=== PATIENT | male | born 1975 | race Caucasian/White ===

== ENCOUNTER 2020-10-18 08:52 | Emergency (ER) | payer OTHER, SELFPAY ==
[2020-10-18 08:58] VITALS: BP 141/93; PULSE 75; RESP 18; TEMP 36.6; O2SAT 97
[2020-10-18] MEDS: KETOROLAC 30 MG/ML VIAL (*BKC) IM (09:35)
--- NOTE | 2020-10-18 09:43 | ED.BACK ---
HPI - Back Pain/Injury General Chief Complaint: Back Pain/Injury Stated Complaint: back pain Time Seen by Provider: 10/18/20 09:07 Source: patient Mode of arrival: ambulatory Limitations: no limitations History of Present Illness HPI Narrative: Patient presents with chief complaint of pain to bilateral sides of low back. Patient states on Saturday he was very active however he denies any falls or direct impact. Patient and his back became painful on Saturday afternoon. He states he was taking ibuprofen inside chiropractor yesterday but denies remittance of his discomfort. He denies radicular symptoms. He denies loss of range of motion but states motion is very painful and spasm-like. Patient states he has had this issue in the past and had improvement with muscle relaxers. Patient denies fever, chills, nausea, vomiting, diarrhea, loss of bowel or bladder function or saddle paresthesias. Related Data Allergies Allergy/AdvReac Type Severity Reaction Status Date / Time rosuvastatin Allergy Mild Unknown Verified 10/18/20 09:03 clarithromycin Allergy Unknown Unknown Verified 10/18/20 09:03 codeine Allergy Unknown Unknown Verified 09/19/20 08:21 ezetimibe Allergy Unknown rash Verified 10/18/20 09:03 lisinopril Allergy Unknown Unknown Verified 10/18/20 09:03 No Known Allergies Allergy Unknown Verified 09/19/20 08:21 Review of Systems Review of Systems: Narrative: CONSTITUTIONAL: Denies fever, chills, or sweats. EYES: Denies visual changes, redness, or discharge. ENT: Denies rhinorrhea, congestion, sore throat, or otalgia. CARDIOVASCULAR: Denies chest pain, palpitations, or edema. RESPIRATORY: Denies cough or dyspnea. GASTROINTESTINAL: Denies abdominal pain, nausea, vomiting, or diarrhea. GENITOURINARY: Denies dysuria or hematuria. SKIN: Denies rash or itching. MUSCULOSKELETAL: Reports back pain denies joint pain, or myalgia. NEUROLOGIC: Denies headache, numbness, dizziness, or weakness. PSYCHIATRIC: Denies anxiety or depression. [facility] Family History Family History Father Cerebrovascular accident Mother Family history of lymphoma Grandparent Diabetes mellitus Other Hypertension Social History Social History (Reviewed 09/19/20 @ 08:22 by Chloe Joshua Smoking status: Never smoker Second hand tobacco smoke exposure: No Smoking end date: 07/22/15 Alcohol intake: current Exam Narrative: Exam Narrative: GENERAL: Well-appearing, well-nourished, and in no acute distress. HEAD: Normocephalic, atraumatic. EYES: PERRLA and EOMI. ENT: Nares clear, no rhinorrhea or epistaxis. Mucous membranes moist. Oropharynx without tonsillar hypertrophy exudate or other lesions. Bilateral TMs pearly cobb nonbulging NECK: Supple. No adenopathy or masses. CHEST: Clear to auscultation. No respiratory distress. No wheezes rales or rhonchi HEART: Regular rate and rhythm. No murmur heard. Normal peripheral pulses. BACK: No vertebral point tenderness. No bony step-offs noted. Patient able to ambulate and weight-bear. Lumbar paraspinal muscle spasm palpated right worse than left. EXTREMITIES: Normal range of motion. No edema. SKIN: Warm, dry, no rash. NEURO: No focal deficits. Alert and oriented x3. PSYCH: Normal mood and affect. Course Vital Signs Vital signs: Vital Signs Temperature 97.9 F 10/18/20 08:58 Pulse Rate 75 10/18/20 08:58 Respiratory Rate 18 10/18/20 08:58 Blood Pressure 141/93 H 10/18/20 08:58 Pulse Oximetry 97 10/18/20 08:58 Temperature 97.9 F 10/18/20 08:58 Pulse Rate 72 10/18/20 10:06 Respiratory Rate 18 10/18/20 10:06 Blood Pressure 133/75 10/18/20 10:06 Pulse Oximetry 100 10/18/20 10:06 MDM - Back Pain/Injury MDM Narrative Medical decision making narrative: Patient does not show any signs of direct injury or accident. Patient does not have any vertebral point tenderness. Offered x-ray which she declines. I agree
--- NOTE | 2020-10-18 09:58 | PC.NURSE ---
Pt given d/c instructions, pt and refusing to leave because he has not had relief of pain. Ed petersen informed of pt statements, awaiting new order.
[2020-10-18] MEDS: methylPREDNISolone SOD SUCC 125 MG VIAL IM (10:03)
[2020-10-18 10:06] VITALS: BP 133/75; PULSE 72; RESP 18; O2SAT 100
== END 2020-10-18 10:06 | disposition home or self-care (01) ==
PROVIDERS: Emergency Provider Emergency Medicine; PCP Family Medicine
DX: M62.830 Muscle spasm of back (principal)
CPT/HCPCS: 96372; 99284; J1885; J2930

== ENCOUNTER → 2021-02-09 10:08 | Outpatient (CLI) | payer OTHER, SELFPAY ==
--- NOTE | ~2021-02-09 | XR_ITS ---
XR foot RT min 3V DATE: 02/09/2021 10:24 INDICATION: Great toe pain TECHNIQUE: 4 views COMPARISON: None FINDINGS: There is mild osteoarthritis at the first metatarsophalangeal joint. Minimal plantar calcaneal enthesopathy. No fracture, dislocation, periosteal reaction or bone destruction. IMPRESSION: Mild osteoarthritis at first metatarsophalangeal joint Minimal plantar calcaneal enthesopathy Reviewed, dictated and finalized at location A.
== END ==
PROVIDERS: Visit Provider Nurse Practitioner Family
DX: M19.071 Primary osteoarthritis, right ankle and foot (principal)
CPT/HCPCS: 73630

== ENCOUNTER → 2021-03-07 10:07 | Outpatient (CLI) | payer OTHER, SELFPAY ==
--- NOTE | ~2021-03-07 | US_ITS ---
EXAMINATION: US soft tissue pelvic DATE: 03/07/2021 10:25 INDICATION: Right lower quadrant/inguinal mass TECHNIQUE: Multiple grayscale and Doppler ultrasound images of the right lower quadrant/right inguina l region of concern were obtained. COMPARISON: None FINDINGS: There is a 5.5 x 3.2 x 2.1 cm mildly lobulated generally ovoid subcutaneous mass at the region of con cern which is slightly hyperechoic and with finer echotexture to the surrounding fat. No evident mei iation through the underlying abdominal wall. IMPRESSION: 1. Nonspecific 5.5 x 3.2 x 2.1 cm soft tissue mass centered in the subcutaneous fat at the region of concern statistically most likely to represent a lipoma. Consider CT or MRI of the pelvis for more d efinitive determination. Reviewed, dictated and finalized at location A. IMPRESSION: 1. Nonspecific 5.5 x 3.2 x 2.1 cm soft tissue mass centered in the subcutaneous fat at the region of concern statistically most likely to represent a lipoma. Consider CT or MRI of the pelvis for more definitive determination.
== END ==
PROVIDERS: PCP Family Medicine; Visit Provider Nurse Practitioner Family
DX: M79.89 Other specified soft tissue disorders (principal)
CPT/HCPCS: 76857

== ENCOUNTER 2021-05-04 08:26 | Outpatient (CLI) | payer OTHER, SELFPAY ==
--- NOTE | ~2021-05-04 | CT_ITS ---
EXAMINATION: CT pelvis w con DATE: 05/04/2021 09:17 INDICATION: Right groin mass suspicious for either lipoma or inguinal hernia. TECHNIQUE: High resolution computed tomography (CT) of the pelvis was performed with 100 mL Omnipaque -350 intravenous contrast. Additional sagittal and coronal reconstructions were performed. Automated exposure control and iterative reconstruction technique were employed. The dose-length product was 64 6.14 mGy-cm. COMPARISON: Ultrasound dated and CT dated 08/03/2014 FINDINGS: Visualized lower poles of the bilateral kidneys are normal. The visualized portion of the bowels incl uding the appendix are normal. Tiny fat-containing umbilical hernia. Bladder and prostate are unremar kable. No free fluid in the pelvis. No pathologically enlarged pelvic or inguinal lymphadenopathy. Sm all fat-containing right inguinal hernia measuring up to 1-1.5 cm in maximal diameter. There is a sub tle subcutaneous lipoma immediately underlying the marker indicating the mass of concern which measur es 6 x 2.5 x 3.5 cm which corresponds relatively close to the mass identified on the prior ultrasound . Moderate lower lumbar spondylosis. Mild bilateral hip osteoarthritis. IMPRESSION: 1. Subtle 6.2 x 2.5 x 3.5 cm subcutaneous lipoma underlying the marker and corresponding in size and location to the mass identified on prior ultrasound. 2. Coincidental very small fat-containing right inguinal hernia. Reviewed, dictated and finalized at location A. IMPRESSION: 1. Subtle 6.2 x 2.5 x 3.5 cm subcutaneous lipoma underlying the marker and keenan esponding in size and location to the mass identified on prior ultrasound. 2. Coincidental very small fat-containing right inguinal hernia.
[2021-05-04 09:02] LABS: Estimated Glomerular Filt Rate > 60
== END 2021-05-04 08:27 | disposition home or self-care (01) ==
LOC: ANHIMG 08:28
PROVIDERS: PCP Family Medicine; Visit Provider Surgery
DX: M79.89 Other specified soft tissue disorders (principal); D17.1 Benign lipomatous neoplasm of skin and subcutaneous tissue of trunk
CPT/HCPCS: 72193; Q9967

== ENCOUNTER 2021-06-14 01:21 | Day surgery (SDC) | payer OTHER, SELFPAY ==
[2021-06-07 13:03] VITALS: BMI 31.6
--- NOTE | 2021-06-07 13:04 | PC.NURSE ---
Report to the Outpatient Waiting Room, entrance under the green pavilion located off [facility], at time 1000 on date _06/14/21 . OR Time: 1200 - You and your visitor will be asked a series of questions to screen for COVID 19 for your protection. - A mask is required within the hospital. - Only one visitor is allowed at this time. Patient visitors will be guided where to wait when not with patient. Preoperative COVID Testing Requirements: No COVID Test needed if: (proof is required; if not received patient will have Rapid Test prior to entry) - Patient has received COVID Vaccine at least 14 days prior to procedure date or - Patient has positive COVID test result within last 90 days of surgery date. COVID Test needed if above criteria is not met If not COVID vaccinated a COVID test must be conducted within 72 hours of surgery and patient is asked to isolate self from time of testing until procedure. You will go to the [email or web address] for your COVID testing. The [email or web address] site is located at the corner of [address] [facility]. You will only be called if COVID results are positive and your surgeon may reschedule your elective surgery date. Patients may have clear liquids (water, carbonated beverages, clear teas, apple juice) until 3 hours prior to surgery with a maximum of 20 ounces. - No food from midnight until time of surgery - Infants may have breast milk until 4 hours before surgery, formula 6 hours prior to surgery. - Children will be allowed to drink immediately following surgery. If applicable, please bring a bottle or sippy cup to assist with drinking. Juice, water, soda, and popsicles are readily available. For infants on formula, please bring formula the day of surgery. Pacifiers are allowed. Take the following medications with a SIP of water the morning of surgery: alprazolam,buproprion,levothyroxine_ Medications to discontinue per physician _vitamins_ Date to take last dose_pt stopped x 2 weeks Please no make-up, nail kyrgyz, hairspray, perfume, deodorant, or body powder the day of surgery. No jewelry (including any body piercings) or valuables the day of surgery, leave them at home. Please take a shower or bath the night before, or the morning of, surgery with an antibacterial soap. Wear comfortable, loose fitting clothing. Children are encouraged to wear pajamas. hibiclens shower am of surgery. - Jewelry must be removed prior to entering the operating room. Rings and piercings that are not removed may be cut off. - The hospital will not accept responsibility for valuables. - Please leave all valuables, including medications, at home the day of surgery. If you are going home after surgery, a licensed auto carrier driver must drive you home. - NO public transportation without another adult. - We recommend that an adult stay with you for 24 hours following discharge. - We also recommend that you do not drive, make important decision, drink alcoholic beverages, or take any drugs that were not prescribed by your health care provider for at least 24 hours after your discharge time. For Pediatric surgeries, we recommend two adults accompany the child home (only one inside the building at this time). Follow any additional instructions given to you from your surgeon. Telephone instructions given to kristi mercado_and asked if any additional questions and then verbalized understanding. Patient advised to call surgeon office or pre surgery nurse liaison [phone] if any additional questions.
[2021-06-14 10:10] VITALS: BP 136/87; PULSE 65; RESP 16; TEMP 36.4; O2SAT 98
[2021-06-14] MEDS: ACETAMINOPHEN 500 MG TABLET 1000 MG PO (10:27)
[2021-06-14] MEDS: LACTATED RINGERS 1,000 ML 30 ML IV CONT ×2 (10:30→14:08)
[2021-06-14] MEDS: KETOROLAC 15 MG/ML VIAL (*BKC) IV PUSH (10:32)
--- NOTE | 2021-06-14 11:24 | WPDANESEPPF ---
Anes - Initial Pre Proc Eval Procedure: Operation Date: 06/14/21 12:00 Proposed Procedures p Open Repair Right Inguinal Hernia with Mesh, Excision Lipoma Right Groin - Maynor García MD Date/Time: 06/14/21 11:24 Surgeon: Maynor García MD Pre Op Diagnosis: Rt Ing Hernia, Right Groin Lipoma (6 by 3 by 2cm) Patient Data Age: 46 Gender: M Height: 1.78 m Weight: 100.2 kg Last Vital Signs Temp 36.4 C L 06/14/21 10:10 Pulse 65 06/14/21 10:10 Resp 16 06/14/21 10:10 BP 136/87 06/14/21 10:10 Pulse Ox 98 06/14/21 10:10 Allergies Allergy/AdvReac Type Severity Reaction Status Date / Time ezetimibe Allergy Intermediate rash Verified 06/14/21 10:21 rosuvastatin Allergy Mild Swelling/it Verified 06/14/21 10:21 maricruz lisinopril AdvReac Mild Cough Verified 06/14/21 10:21 Home Medications Medication Instructions Recorded Confirmed Type erenumab-aooe 70 mg/mL 70 mg SUBCUT MONTHLY #1 ea 10/31/20 06/14/21 Rx subcutaneous auto-injector hydrochlorothiazide 12.5 mg tablet 12.5 mg PO DAILY #30 tablet 12/09/20 06/14/21 Rx losartan 50 mg tablet 50 mg PO DAILY #30 tablet 12/09/20 06/14/21 Rx bupropion HCl 150 mg tablet,12 hr 150 mg PO BID #60 tablet 03/14/21 06/14/21 Rx sustained-release hydroxyzine HCl 10 mg tablet 10 mg PO TID PRN #30 tablet 04/11/21 06/14/21 Rx levothyroxine 125 mcg tablet 125 mcg PO DAILY #30 tablet 04/12/21 06/14/21 Rx aspirin 81 mg tablet,delayed 81 mg PO DAILY 04/24/21 06/14/21 History release multivitamin 1 tablet PO DAILY 04/24/21 06/07/21 History vitamin E 200 unit capsule 200 unit PO DAILY 04/24/21 06/07/21 History alprazolam 0.25 mg PO PRN 06/07/21 06/14/21 History Patient hx anesthesia problems: none Family hx anesthesia problems: none Results Review: All pre-operative results and documents have been reviewed as part of the pre-operative evaluation. FOR[facility]LY [facility], [facility] Past Medical History Medical History Anxiety BMI 32.0-32.9,adult Cholecystectomy planned Deviated septum Essential (primary) hypertension Hypothyroidism Migraine VERENICE (obstructive sleep apnea) Surgical History Surgical History History of laparoscopic cholecystectomy History of nasal septoplasty 2019 Family History Family History Father Cerebrovascular accident Acute myocardial infarction Mother Family history of lymphoma Grandparent Diabetes mellitus Sibling No problems noted. Other Hypertension Social History Social History Smoking status: Former smoker Tobacco type: cigarettes Second hand tobacco smoke exposure: No Smoking end date: 07/22/15 Additional smoking assessment comments: 1/2 ppd x 10 years cigarettes Alcohol intake: current Drinks per week: 10 Substance use: never Substance use type: does not use Living arrangements: with family Additional occupation/education comments: [employer] Gender identity (if verbalized by the patient): Male Spiritual care concerns: No Anes - Eval Final PreProcedure Day of Procedure 06/14/21 11:24 Patient weight: obese Heart: regular rate and rhythm Lungs: clear to auscultation Airway: Mallampati scale class II Neurological: alert and oriented Last oral intake: >/= 8 hours ASA classification: III Emergent: no Anesthetic plan: proceed Anesthesia type and monitoring: general LMA and standard monitoring Results Review: All pre-operative results and documents have been reviewed as part of the pre-operative evaluation. Informed Consent: The patient's anesthetic plan and its attendant risks and benefits were discussed with the patient/family/POA. Questions were solicited and answers provided to the satisfaction of the patient/family/POA.
--- NOTE | 2021-06-14 11:44 | WPDHPUPDATE1 ---
History and Physical Update Update Date/Time: 06/14/21 11:44 History and Physical has been reviewed, including an updated exam of the patient. There are NO changes in the patient's condition. Risks, benefits, and alternatives have been discussed and questions answered. Patient agrees to proceed with procedure.
[2021-06-14] MEDS: ceFAZolin 2 GM/D5W 50 ML 2 GM/50 ML BAG IVPB (12:04)
[2021-06-14 14:08] VITALS: BP 112/65; PULSE 64; RESP 18; O2SAT 96
--- NOTE | 2021-06-14 14:22 | W.PM.PROC2 ---
Procedure Note - Detailed Date of Procedure 06/14/21 Pre-op Diagnosis 1. Right Inguinal Hernia 2. Right Groin Lipoma (6 by 3 by 2cm) Post-op Diagnosis other (1.Direct right inguinal hernia 2.Right groin lipoma X 2) Procedure Performed 1. Repair of direct right inguinal hernia with mesh 2. Excision of 6.5 by 7.5 x 3 cm lipoma with an adjacent 3 x 1.5 cm area of suspected lipoma in right groin subcutaneous tissues (2 separate adjacent apparent lipomatous masses). Surgeon Maynor García MD [employer] ANA ROSA Ryan OR malt specifications control assistant Anesthesia general (GIVS) and local Indications See specifics in pre-op H & P. Pt. has a palpable enlarginging subcutaneous mass of the right groin. By PE there was a subtle weakness in the area of the usual site for bulging of a RIH. Therefore, after a Pelvic CT confirmed an apparent fascial defect in the right groin we (the pt and I) decided on proceeding with an open excision of the fairly large ipoma in the right groin and then an exploration and repair of an right inguinal hernia if it is confirmed on intra-operative exam. Findings 1. A soft spongy fatty tumor in the subcutaneous tissues right groin directly under the site where one would usually make an incision for an inguinal hernia repair. After removed it measured 7.5 x 6.5 x 3.7 cm. There was also a small separate area of possibly adjacent lipoma which was removed that was 3 x 1 cm in size. 2. Small direct inguinal hernia on the right. Description of Procedure The patient was placed in the supine position on the operating room table. After induction of adequate GIVS anesthesia by [facility] Anesthesia staff, we carefully prepped the entire abdomen and scrotum with chlorhexidine. One sterile towel was placed underneath the scrotum. Four towels were placed around the right lower quadrant. Following this, a time-out was performed with the surgical team and the patient's surgical procedure and site was confirmed. We then carefully outlined a curvilinear incision in the right groin area and a curvilinear incision was made after introducing a mixture of local anesthetic, using 0.5% Marcaine plain and 1% Xylocaine with epinephrine as both an ilioinguinal nerve block and at the incision site with a 25 gauge needle. Following this, I carefully made the incision, and carried it down through the subcutaneous tissue. Almost immediately I ran into the known fairly good size lipoma. In fact I fashioned my incision directly over this which was also starting over the lateral right side of the pubic bone. We then carefully dissected the larger of the 2 lipomas out of the subcutaneous tissues. It seemed to be between the subcutaneous fat and Marbella's fascia. Subsequently just cephalad to it a separate 3 x 1.5 cm area of fat consistent with an encapsulated lipoma was also excised with Bovie cautery. There was one fairly large venous tributary going to the lateral end of the deep side of this larger lipoma which was divided between hemostats and tied with 3-0 Vicryl sutures. Then, Marbella's fascia was incised and then we identified the external oblique aponeurosis and the external ring. Following this, the same mixture of local anesthetic was infiltrated underneath the external oblique aponeurosis and this was split in the direction of it's fibers with a #15 blade initially and then using metzenbaum scissors. I then opened the external oblique through the external ring and incised this somewhat posteriorly and superiorly exposing the ilioinguinal nerve. In fact as I exposed it is it appeared that has I open the external oblique fascia with a 15 blade the ilioinguinal branch running on the cord structures had been transected. Therefore, I decided to sacrifice it and it was dissected about 1 cm back and cut. Hopefully this way the patient may have some numbness along the inside of his thigh but no nerve entrapment syndrome. I then surrounded these st
[2021-06-14 14:30] VITALS: BP 119/69; PULSE 58; RESP 16
[2021-06-14 15:00] VITALS: BP 120/85; PULSE 57; RESP 16
== END 2021-06-14 15:30 | disposition home or self-care (01) ==
PROVIDERS: PCP Family Medicine; Visit Provider Surgery
PROC: (CPT 49505; principal; 2021-06-14 12:00)
DX: K40.90 Unilateral inguinal hernia, without obstruction or gangrene, not specified as recurrent (principal); D17.1 Benign lipomatous neoplasm of skin and subcutaneous tissue of trunk; F17.210 Nicotine dependence, cigarettes, uncomplicated; Z79.82 Long term (current) use of aspirin; I10 Essential (primary) hypertension; Z68.32 Body mass index [BMI] 32.0-32.9, adult; E03.9 Hypothyroidism, unspecified; F41.9 Anxiety disorder, unspecified; G47.33 Obstructive sleep apnea (adult) (pediatric); E66.9 Obesity, unspecified; Z68.31 Body mass index [BMI] 31.0-31.9, adult
CPT/HCPCS: 49505; 88304; A9270; C1781; J0690; J1885; J2250; J2704; J3010; J7120

== ENCOUNTER → 2022-02-28 15:15 | Outpatient (CLI) | payer OTHER, SELFPAY ==
--- NOTE | ~2022-02-28 | CT_ITS ---
EXAMINATION: CT abdomen pelvis wo con DATE: 02/28/2022 16:01 INDICATION: Hematuria. Right lower quadrant pain. History of renal stones. TECHNIQUE: Computed tomography (CT) of the abdomen and pelvis was performed without intravenous contr ast. The dose-length product was 554.38 mGy-cm. Automated exposure control and iterative reconstructi on technique were employed. COMPARISON: CT dated 05/04/2021 FINDINGS: Lung bases are unremarkable. Heart size normal. No significant pleural or pericardial effus ion. There is diffuse bladder wall thickening, suspicious for cystitis. The liver, spleen, pancreas, adrenal glands and kidneys are unremarkable. Ureters are normal in course and caliber. No stones or h ydronephrosis. There are cholecystectomy clips. Nonobstructive bowel gas pattern. There is mild lumba r spondylosis. IMPRESSION: 1. Diffuse bladder wall thickening, suspicious for cystitis. Correlate with urinalysis. Reviewed, dictated and finalized at location A. IMPRESSION: 1. Diffuse bladder wall thickening, suspicious for cystitis. Correlate with uri nalysis.
== END ==
PROVIDERS: PCP Family Medicine; Visit Provider Nurse Practitioner Family
DX: N20.0 Calculus of kidney (principal); R31.9 Hematuria, unspecified; M47.816 Spondylosis without myelopathy or radiculopathy, lumbar region
CPT/HCPCS: 74176

== ENCOUNTER 2022-07-13 00:35 | Day surgery (SDC) | payer OTHER, SELFPAY ==
[2022-07-03 12:04] VITALS: BMI 30.9
[2022-07-13 08:39] VITALS: BP 139/87; PULSE 76; RESP 18; TEMP 36.1; O2SAT 99; BMI 30.2
[2022-07-13] MEDS: LACTATED RINGERS 1,000 ML 150 ML IV CONT (08:48)
--- NOTE | 2022-07-13 09:06 | WPDANESEPPF ---
Anes - Initial Pre Proc Eval Procedure: Operation Date: 07/13/22 10:15 Proposed Procedures p Screening Colonoscopy - Thai Freeman MD Date/Time: 07/13/22 09:06 Surgeon: Thai Freeman MD Pre Op Diagnosis: neoplasm screening Patient Data Age: 47 Gender: M Height: 1.78 m Weight: 95.5 kg Last Vital Signs Temp 36.1 C L 07/13/22 08:39 Pulse 76 07/13/22 08:39 Resp 18 07/13/22 08:39 BP 139/87 07/13/22 08:39 Pulse Ox 99 07/13/22 08:39 O2 Del Method Room Air 07/13/22 08:39 Allergies Allergy/AdvReac Type Severity Reaction Status Date / Time ezetimibe Allergy Intermediate rash Verified 07/13/22 08:38 rosuvastatin Allergy Mild Swelling/it Verified 07/13/22 08:38 maricruz lisinopril AdvReac Mild Cough Verified 07/13/22 08:38 Home Medications Medication Instructions Recorded Confirmed Type aspirin 81 mg tablet,delayed 81 mg PO DAILY 04/24/21 07/13/22 History release (Adult Low Dose Aspirin) multivitamin 1 tablet PO DAILY 04/24/21 07/13/22 History vitamin E 200 unit capsule 200 unit PO DAILY 04/24/21 07/13/22 History hydroxyzine HCl 10 mg tablet 10 mg PO TID PRN anxiety #30 tabs 02/16/22 07/13/22 Rx levothyroxine 125 mcg tablet 125 mcg PO DAILY #30 tabs 02/16/22 07/13/22 Rx (Synthroid) erenumab-aooe 70 mg/mL 70 mg subcut MONTHLY #1 ea 04/20/22 07/13/22 Rx subcutaneous auto-injector (Aimovig Autoinjector) losartan 100 See Rx Instructions .Route 05/27/22 07/13/22 Rx mg-hydrochlorothiazide 25 mg tablet .COMPLEX #90 tabs duloxetine 60 mg capsule,delayed 60 mg PO DAILY #30 caps 06/01/22 07/13/22 Rx release alprazolam 0.25 mg tablet 0.25 mg PO TID PRN anxiety #10 tabs 06/20/22 07/13/22 Rx Patient hx anesthesia problems: none Family hx anesthesia problems: none Results Review: All pre-operative results and documents have been reviewed as part of the pre-operative evaluation. [facility] Past Medical History Medical History Anxiety BMI 31.0-31.9,adult BMI 32.0-32.9,adult BMI 33.0-33.9,adult Cholecystectomy planned Deviated septum Essential (primary) hypertension Hypothyroidism Migraine VERENICE (obstructive sleep apnea) Surgical History Surgical History H/O inguinal hernia repair RIGHT INGUINAL HERNIA REPAIR WITH MESH 06/14/21 History of laparoscopic cholecystectomy History of nasal septoplasty 2019 S/P excision of lipoma [id number] CM RIGHT GROIN LIPOMA EXCISION 06/14/21 Family History Family History Father Cerebrovascular accident Acute myocardial infarction Mother Family history of lymphoma Lymphoma Grandparent Diabetes mellitus Sibling No problems noted. Other Hypertension Social History Social History Years smoked: 15 Smoking status: Former smoker Tobacco type: cigarettes Second hand tobacco smoke exposure: No Smoking end date: 07/22/15 Additional smoking assessment comments: 1/2 ppd x 10 years cigarettes Alcohol intake: current Drinks per week: 21 Substance use: never Substance use type: does not use Living arrangements: with family Additional occupation/education comments: [employer] Gender identity (if verbalized by the patient): Male Sexual Orientation (if Verbalized by the Patient): Straight or Heterosexual Spiritual care concerns: No Agree to blood products: Yes Anes - Eval Final PreProcedure Day of Procedure 07/13/22 09:06 Patient weight: overweight Heart: regular rate and rhythm Lungs: clear to auscultation Airway: Mallampati scale class II Neurological: alert and oriented Last oral intake: >/= 8 hours ASA classification: III Emergent: no Anesthetic plan: proceed Anesthesia type and monitoring: general GIVS an
--- NOTE | 2022-07-13 09:21 | PM.HPGS ---
History of Present Illness History of Present Illness Consent: Risks, benefits, and alternatives have been discussed and questions answered. Patient agrees to proceed with procedure. Chief complaint: neoplasm screening Narrative: Tommie Zamora is a 47 year old male here for first screening colonoscopy Review of Systems Constitutional: Constitutional: Denies headache(s) and Denies weakness Eyes: Eyes: Denies blurry vision ENT: Reports Normal hearing present, Denies headache(s) and Denies neck pain Cardiovascular: Cardiovascular: Denies chest pain and Denies dyspnea Respiratory: Respiratory: Denies dyspnea Gastrointestinal: Gastrointestinal: Reports no additional gastrointestinal complaints Genitourinary: Genitourinary: Denies dysuria Musculoskeletal: Musculoskeletal: Denies neck pain Integumentary/Breasts: Skin/Breast: Denies dry skin Neurologic: Reports Normal hearing present, Denies headache(s) and Denies weakness Psychiatric: Psychiatric: Denies anxiety Endocrine: Endocrine: Denies change in body appearance Hematologic/Lymphatic: Hematologic/Lymphatic: Denies easy bleeding Allergic/Immunologic: Allergic/Immunologic: Denies urticaria PMFSH Past Medical History Medical History Anxiety BMI 31.0-31.9,adult BMI 32.0-32.9,adult BMI 33.0-33.9,adult Cholecystectomy planned Deviated septum Essential (primary) hypertension Hypothyroidism Migraine VERENICE (obstructive sleep apnea) Surgical History Surgical History H/O inguinal hernia repair RIGHT INGUINAL HERNIA REPAIR WITH MESH 06/14/21 History of laparoscopic cholecystectomy History of nasal septoplasty 2019 S/P excision of lipoma 6X3X2 CM RIGHT GROIN LIPOMA EXCISION 06/14/21 Family History Family History Father Cerebrovascular accident Acute myocardial infarction Mother Family history of lymphoma Lymphoma Grandparent Diabetes mellitus Sibling No problems noted. Other Hypertension Social History Social History Years smoked: 15 Smoking status: Former smoker Tobacco type: cigarettes Second hand tobacco smoke exposure: No Smoking end date: 07/22/15 Additional smoking assessment comments: 1/2 ppd x 10 years cigarettes Alcohol intake: current Drinks per week: 21 Substance use: never Substance use type: does not use Living arrangements: with family Additional occupation/education comments: [employer] Gender identity (if verbalized by the patient): Male Sexual Orientation (if Verbalized by the Patient): Straight or Heterosexual Spiritual care concerns: No Agree to blood products: Yes Meds Home Medications and Allergies Home Medications Medication Instructions Recorded Confirmed Type aspirin 81 mg tablet,delayed 81 mg PO DAILY 04/24/21 07/13/22 History release (Adult Low Dose Aspirin) multivitamin 1 tablet PO DAILY 04/24/21 07/13/22 History vitamin E 200 unit capsule 200 unit PO DAILY 04/24/21 07/13/22 History hydroxyzine HCl 10 mg tablet 10 mg PO TID PRN anxiety #30 tabs 02/16/22 07/13/22 Rx levothyroxine 125 mcg tablet 125 mcg PO DAILY #30 tabs 02/16/22 07/13/22 Rx (Synthroid) erenumab-aooe 70 mg/mL 70 mg subcut MONTHLY #1 ea 04/20/22 07/13/22 Rx subcutaneous auto-injector (Aimovig Autoinjector) losartan 100 See Rx Instructions .Route 05/27/22 07/13/22 Rx mg-hydrochlorothiazide 25 mg tablet .COMPLEX #90 tabs duloxetine 60 mg capsule,delayed 60 mg PO DAILY #30 caps 06/01/22 07/13/22 Rx release alprazolam 0.25 mg tablet 0.25 mg PO TID PRN anxiety #10 tabs 06/20/22 07/13/22 Rx Allergies Allergy/AdvReac Type Severity Reaction Status Date / Time ezetimibe Allergy Intermediate rash Verified 07/13/22 08:38 rosuvasta
[2022-07-13 09:46] VITALS: BP 118/80; PULSE 79; RESP 22; O2SAT 97
[2022-07-13 09:56] VITALS: BP 123/84; PULSE 64; RESP 21; O2SAT 99
[2022-07-13 10:06] VITALS: BP 126/86; PULSE 63; RESP 24; O2SAT 100
== END 2022-07-13 10:11 | disposition home or self-care (01) ==
PROVIDERS: PCP Family Medicine; Visit Provider Internal Medicine Gastroenterology
PROC: 0DJD8ZZ Inspection of Lower Intestinal Tract, Via Natural or Artificial Opening Endoscopic (ICD-10-PCS; CPT 45378; principal; 2022-07-13 10:15)
DX: Z12.11 Encounter for screening for malignant neoplasm of colon (principal); D12.8 Benign neoplasm of rectum; K64.8 Other hemorrhoids; I10 Essential (primary) hypertension; E03.9 Hypothyroidism, unspecified; G47.33 Obstructive sleep apnea (adult) (pediatric); F41.9 Anxiety disorder, unspecified; Z87.891 Personal history of nicotine dependence
CPT/HCPCS: 45385; 88305; J2704; J7120

== ENCOUNTER 2022-08-09 09:17 | Emergency (ER) | payer OTHER, SELFPAY ==
[2022-08-09] VITALS (11 sets, daily range): BP systolic 153–156; BP diastolic 104–106; PULSE 82–89; RESP 14–22; TEMP 36.4; O2SAT 96–99
--- NOTE | ~2022-08-09 | CT_ITS ---
CT Abdomen and Pelvis with contrast. History: Abdominal pain. Spiral CT of the abdomen and pelvis was performed after the administration of intravenous contrast. 1 00 cc of Omnipaque 350 was administered intravenously without complication. Dose reduction technique was used on this scan by utilizing automated exposure control and iterative reconstruction technique. The dose-length product (DLP) was 781.26 mGy-cm. COMPARISON: 02/28/2022 Findings: Scans through the lung bases demonstrate mild atelectatic change. The liver, spleen, pancreas, adrenals and kidneys are within normal limits. Cholecystectomy clips are present. No evidence of aortic aneurysm. No lymphadenopathy is seen. There is no evidence of bowel obstruction. There is no evidence to suggest acute appendicitis or dive rticulitis. Images through the pelvis were performed. Urinary bladder unremarkable. Prostate gland and seminal ve sicles are unremarkable. No ascites is seen. Impression: No significant abnormalities seen. Reviewed, dictated and finalized at [facility]. APHONE TECHNICIAN Impression: No significant abnormalities seen.
[2022-08-09 09:58] LABS: Basophils Percent Auto 0.5 % (0.2-1.2); Eosinophils Absolute Auto 0.1 K/mm3 (0-0.3); Eosinophils Percent Auto 2.2 % (0-4.4); Hematocrit 41.5 % (42.0-52.0); Hemoglobin 14.8 g/dL (14.0-18.0); Immature Granulocyte Absolute 0.02 K/mm3 (0.00-0.031); Immature Granulocyte Percent A 0.3 % (0-0.5); Lymphocytes Absolute Auto 1.13 K/mm3 (0.9-3.2); Lymphocytes Percent Auto 19.3 % (18.3-44.2); Mean Corpuscular HGB Conc 35.7 g/dl (32-36); Mean Corpuscular Volume 89.8 fl (80-100); Mean Platelet Volume 9.1 fl (7.4-10.4); Monocytes Absolute Auto 0.4 K/mm3 (0.1-0.6); Monocytes Percent Auto 6.8 % (2.6-8.5); Neutrophils Absolute Auto 4.2 K/mm3 (1.3-6.7); Neutrophils Percent Auto 70.9 % (45.5-73.1); Platelet Count Result 208 k/mm3 (150-375); Red Blood Count 4.62 M/mm3 (4.6-6.20); Red Cell Distribution Width 12.4 % (11.5-14.5); White Blood Count 5.9 K/mm3 (4.5-10.0)
[2022-08-09 10:09] LABS: Alanine Aminotransferase 44 U/L (6-50); Albumin Level 4.6 g/dL (3.5-5.1); Alkaline Phosphatase 61 U/L (38-126); Anion Gap 9 mmol/L (8-16); Aspartate Amino Transferase 36 U/L (17-59); Bilirubin,Total 0.7 mg/dL (0.2-1.3); Blood Urea Nitrogen 8 mg/dL (9-20); Calcium 9.2 mg/dL (8.4-10.2); Carbon Dioxide 28 mmol/L (22-30); Chloride 100 mmol/L (98-107); Estimated CRCL calculation 122 ml/min; Estimated Glomerular Filt Rate > 60; Glucose 115 mg/dL (65-110); Lipase 87 U/L (23-300); Potassium 3.9 mmol/L (3.4-5.0); Sodium 137 mmol/L (137-145)
[2022-08-09] MEDS: ONDANSETRON INJ 4 MG/2 ML VIAL IV PUSH (10:12)
[2022-08-09] MEDS: MAG HYDROX/AL HYDROX/SIMETH 30 ML UDC PO (11:49)
[2022-08-09] MEDS: FAMOTIDINE 20 MG TABLET PO (11:49)
--- NOTE | 2022-08-09 12:06 | ED.ABDPAIN ---
HPI - Abdominal Pain General Chief Complaint: Abdominal Pain Stated Complaint: abd pain Time Seen by Provider: 08/09/22 09:20 History of Present Illness HPI narrative: Patient presents with 2 days of abdominal pain, seems to go from his right upper quadrant to his right lower quadrant, also seems to have some pain where his hernia repair was performed. No dysuria symptoms. He also feels some bloating after eating. Related Data Home Medications Medication Instructions Recorded Confirmed aspirin 81 mg tablet,delayed 81 mg PO DAILY 04/24/21 07/13/22 release (Adult Low Dose Aspirin) multivitamin 1 tablet PO DAILY 04/24/21 07/13/22 vitamin E 200 unit capsule 200 unit PO DAILY 04/24/21 07/13/22 Allergies Allergy/AdvReac Type Severity Reaction Status Date / Time ezetimibe Allergy Intermediate rash Verified 07/13/22 08:38 rosuvastatin Allergy Mild Swelling/it Verified 07/13/22 08:38 maricruz lisinopril AdvReac Mild Cough Verified 07/13/22 08:38 Review of Systems Review of Systems: CONST: No fever. HEENT: No sore throat C/V: No chest pain RESP: No cough GI: Reports abdominal pain, nausea : No dysuria. M/S: No joint pain. SKIN: No rash. NEURO: [No headache or focal numbness or weakness] PSYCH: [No depression] [facility] Past Medical History Medical History Anxiety BMI 31.0-31.9,adult BMI 32.0-32.9,adult BMI 33.0-33.9,adult Cholecystectomy planned Deviated septum Essential (primary) hypertension Hypothyroidism Migraine VERENICE (obstructive sleep apnea) Surgical History Surgical History H/O inguinal hernia repair RIGHT INGUINAL HERNIA REPAIR WITH MESH 06/14/21 History of laparoscopic cholecystectomy History of nasal septoplasty 2019 S/P excision of lipoma 6X3X2 CM RIGHT GROIN LIPOMA EXCISION 06/14/21 Family History Family History Father Cerebrovascular accident Acute myocardial infarction Mother Family history of lymphoma Lymphoma Grandparent Diabetes mellitus Sibling No problems noted. Other Hypertension Social History Social History Years smoked: 15 Smoking status: Former smoker Tobacco type: cigarettes Second hand tobacco smoke exposure: No Smoking end date: 07/22/15 Additional smoking assessment comments: 1/2 ppd x 10 years cigarettes Alcohol intake: current Drinks per week: 21 Substance use: never Substance use type: does not use Additional occupation/education comments: [employer] Gender identity (if verbalized by the patient): Male Sexual Orientation (if Verbalized by the Patient): Straight or Heterosexual Spiritual care concerns: No Agree to blood products: Yes Exam Narrative: EXAMINATION OF ORGAN SYSTEMS/BODY AREAS: Constitutional: Vital signs per nursing GENERAL:[No acute distress, non-toxic appearing.] HEAD: Normal with no signs of head trauma. EYES: EOMI, conjunctiva normal ENT: Hearing grossly intact LUNGS: Nonlabored breathing. HEART: [Regular rate and rhythm] ABD: [Soft], [minimally tender to deep palpation RLQ/inguinal region] EXT: Normal range of motion SKIN: [No rashes or lesions.] NEURO: [Alert and oriented x 3. No gross focal sensory or strength deficits.] PSYCH: Normal affect Course Vital Signs Vital signs: Vital Signs Pulse Rate 85 08/09/22 09:25 Respiratory Rate 22 H 08/09/22 09:25 Pulse Oximetry 97 08/09/22 09:25 Temperature 97.6 F 08/09/22 09:37 Pulse Rate 87 08/09/22 09:37 Respiratory Rate 14 08/09/22 09:37 Blood Pressure 155/106 H 08/09/22 09:41 Pulse Oximetry 97 08/09/22 12:15 Oxygen Delivery Room Air 08/09/22 09:37 MDM - Abdominal Pain MDM Narrative Medical decision making narrative: Electronic medical record was reviewed. Patient present
== END 2022-08-09 12:20 | disposition home or self-care (01) ==
PROVIDERS: Emergency Provider Emergency Medicine; PCP Family Medicine
DX: R10.11 Right upper quadrant pain (principal); R10.31 Right lower quadrant pain; R14.0 Abdominal distension (gaseous); I10 Essential (primary) hypertension; E03.9 Hypothyroidism, unspecified; G47.33 Obstructive sleep apnea (adult) (pediatric); Z87.891 Personal history of nicotine dependence; Z79.82 Long term (current) use of aspirin
CPT/HCPCS: 36415; 74177; 80053; 83690; 85025; 96374; 99284; A9270; J2405; Q9967

== ENCOUNTER 2025-06-23 09:03 | Emergency (ER) | payer OTHER, BC, SELFPAY ==
--- NOTE | ~2025-06-23 | XR_ITS ---
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 Findings: No acute fracture or malalignment. No significant degenerative changes. Soft tissues unremarkable. Impression: No acute fracture or malalignment. Reviewed, dictated and finalized at location P. NOLOGY RESOURCE TEACHER Impression: No acute fracture or malalignment.
--- NOTE | ~2025-06-23 | XR_ITS ---
Examination: XR wrist RT min 3V Clinical History: slip on ice- right dorsal/lateral wrist pain. RM 2 Comparison: None Technique: 4 views right wrist Findings/impression: 1. No fracture or dislocation right wrist. 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
--- NOTE | 2025-06-23 09:03 | ED_ITS ---
HPI - Extremity Injury (Upper) General Chief Complaint: Extremity Injury, Upper Stated Complaint: R WRIST/ARM INJURY Time Seen by Provider: 06/23/25 09:03 Source: patient Mode of arrival: ambulatory Limitations: no limitations History of Present Illness HPI narrative: Tommie is a 50 year old male patient presenting to the clinic today with c/o right wrist and right hand pain x2 days. He reports he slipped and fell on some ice while at work on Saturday. Pain to the right lateral hand and over the right dorsal/lateral hand. Is able to make a tight fist. Pain to the wrist/hand with radial extension of the wrist. Took Aleve on Saturday. Related Data Home Medications ?Medication ?Instructions ?Recorded ?Confirmed ?Last Taken ?Type aspirin 81 mg tablet,delayed 81 mg PO DAILY 04/24/21 1 08/24/24 05/22/21 History release (Adult Low Dose Aspirin) multivitamin 1 tablet PO DAILY 04/24/21 1 08/24/24 Unknown History vitamin E mixed 200 unit tablet 400 unit PO .QD 06/23/25 Unknown History Allergies Allergy/AdvReac Type Severity Reaction Status Date / Time ezetimibe Allergy Intermediate rash Verified 06/23/25 09:10 rosuvastatin Allergy Mild Swelling/it Verified 06/23/25 09:10 maricruz lisinopril AdvReac Mild Cough Verified 06/23/25 09:10 Review of Systems Review of Systems: Pertinent positives per HPI. Patient denies any fever, chills, rash, headache, visual changes, dizziness, cough, runny nose, sore throat, shortness of breath, chest pain, palpitations, nausea, vomiting, diarrhea, constipation, abdominal pain, or any urinary issues. [facility] Past Medical History Medical History Elevated fasting glucose BMI 40.0-44.9, adult BMI 31.0-31.9,adult BMI 33.0-33.9,adult BMI 32.0-32.9,adult Anxiety Cholecystectomy planned Deviated septum Migraine Essential (primary) hypertension Hypothyroidism VERENICE (obstructive sleep apnea) Surgical History Surgical History S/P excision of lipoma 6X3X2 CM RIGHT GROIN LIPOMA EXCISION 06/14/21 H/O inguinal hernia repair RIGHT INGUINAL HERNIA REPAIR WITH MESH 06/14/21 History of nasal septoplasty 2019 History of laparoscopic cholecystectomy Family History Family History Father Cerebrovascular accident Acute myocardial infarction Mother Family history of lymphoma Lymphoma Grandparent Diabetes mellitus Sibling No problems noted. Other Hypertension Social History Social History Years smoked: 15 Smoking status: Former smoker Tobacco type: cigarettes Second hand tobacco smoke exposure: No Smoking end date: 07/22/15 Additional smoking assessment comments: 1/2 ppd x 10 years cigarettes Alcohol intake: current Drinks per week: 21 Substance use: never Substance use type: does not use Lack of Transportation: No Lack of Food: Never True Current Housing: I Have Housing Concerned About Future Housing: No Difficulty Paying Gas/Electric Bills: No Difficulty Paying for Meds: No Currently Unemployed: No Education: High School Diploma/GED Difficulty w/ Childcare or Family Care: No Living arrangements: with family Occupation/Education: occupation Additional occupation/education comments: [employer] Gender identity (if verbalized by the patient): Male Sexual Orientation (if Verbalized by the Patient): Straight or Heterosexual Spiritual care concerns: No Agree to blood products: Yes Comments At the time of my signature, I reviewed and agree with the nursing past medical, surgical, social, and family history. There is no relevant family history pertinent to the patient complaint. Exam Narrative: General: Well-developed, well nourished, in no apparent distress Head: Normocephalic, atraumatic. Cardio: Regular rate and rhythm, s1 and s2 normal, no murmur appreciated. Resp: Clear to auscultation bilaterally, no rhonchi, rales, wheezing or rubs. Musculoskeletal: No deformity, tender to palpation over the right lateral 5th metacarpal, right mid dorsal wrist, and right ulnar wrist, grossly normal range of motion, pain with radial extension of the wrist, able to make okay sign and give thumbs up, muscle strength strong and equal, peripheral pulse strong, no edema, no cyanosis, normal gait and station Course Course Level of Care: Express Care Visit Vital Signs Vital signs: Vital Signs Temperature 36.2 C L 06/23/25 09:15 Pulse Rate 81 06/23/25 09:15 Respiratory Rate 16 06/23/25 09:15 Blood Pressure 151/99 H 06/23/25 09:15 Pulse Oximetry 100 06/23/25 09:15 Temperature 36.2 C L 06/23/25 09:15 Pulse Rate 81 06/23/25 09:15 Respiratory Rate 16 06/23/25 09:15 Blood Pressure 151/99 H 06/23/25 09:15 Pulse Oximetry 100 06/23/25 09:15 MDM MDM Narrative Medical decision making narrative: At the time of visit patient is resting comfortably on the exam table. Patient appears to be nontoxic. C/o right wrist and right hand pain x2 days. He reports he slipped and fell on some ice while at work on Saturday. Pain to the right lateral hand and over the right dorsal/lateral hand. Is able to make a tight fist. Pain to the wrist/hand with radial extension of the wrist. Took Aleve on Saturday. On exam patient has tenderness to palpation over the right lateral hand-over the lateral 5th metacarpal carpal and pain to the dorsal wrist and ulnar wrist, has full range of motion of right wrist and hand, pain with radial extension, and strong hand grasp, x-rays of the right wrist and right hand were ordered. Diagnostics: X-ray of the right hand and right wrist were performed. X-rays were negative for any sign of fracture or malalignment. Plan: I suspect patient has wrist and hand sprain. Christopher wrap was applied. Work note was given. Supportive measures were discussed with the patient and they voiced understanding discharge instructions and agrees to treatment plan. Return precautions reviewed Differential Diagnosis Differential Diagnosis: wrist sprain, wrist fracture, contusion, soft tissue injury, hand fracture, hand sprain Imaging Data Radiologist's impression: ITS Impressions Hand X-Ray 06/23/25 09:35 Impression: No acute fracture or malalignment. ITS Impressions Hand X-Ray 06/23/25 09:35 Impression: No acute fracture or malalignment. X ray of right wrist was negative for any fracture or malalignment Discharge Plan Discharge Clinical Impression: Hand sprain Qualifiers: Encounter type: initial encounter Laterality: right Qualified Code(s): S63.91XA - Sprain of unspecified part of right wrist and hand, initial encounter Right wrist sprain Qualifiers: Encounter type: initial encounter Wrist sprain location: unspecified location Qualified Code(s): S63.501A - Unspecified sprain of right wrist, initial encounter Patient Disposition: Home Condition: Stable Instructions: Antibiotic Form, Hand Sprain (ED), Wrist Sprain (ED) Additional Instructions: X-rays of the right hand and wrist are negative for any sign of fracture or malalignment. Rest, ice, elevate, and wear christopher wrap as directed Tylenol/motrin for pain as discussed. Follow up with your PCP if symptoms persist more than 1 week. Patient Language: Welsh Prescriptions: No Action aspirin [Adult Low Dose Aspirin] 81 mg tablet,delayed release (DR/EC) 81 mg PO DAILY multivitamin Tablet 1 tablet PO DAILY vitamin E mixed 200 unit tablet 400 unit PO .QD losartan-hydrochlorothiazide 100-25 mg tablet See Rx Instructions .ROUTE .COMPLEX Qty: 90 3RF Dose Instruction: TAKE 1 TABLET BY MOUTH DAILY Rx Instructions: TAKE 1 TABLET BY MOUTH DAILY duloxetine 60 mg capsule,delayed release(DR/EC) 60 mg PO DAILY Qty: 90 3RF alprazolam 0.25 mg tablet 0.25 mg PO TID PRN (Reason: anxiety) Qty: 10 0RF hydroxyzine HCl 10 mg tablet 10 mg PO TID PRN (Reason: anxiety) Qty: 90 1RF hydrocortisone [Proctosol HC] 2.5 % cream with perineal applicator 1 applic RECTAL Q6H Qty: 30 0RF Aimovig Autoinjector 70 mg/mL auto-injector 70 mg subcut MONTHLY Qty: 3 5RF levothyroxine [Synthroid] 125 mcg tablet 125 mcg PO DAILY Qty: 90 3RF Follow-up/Referrals: Nigel Suarez MD [Primary Care Provider, Family Practice] Stand Alone Forms: Work/School Release IP Time of Disposition: 09:36 Quality NIHSS Nursing Documentation ED NIHSS nursing documentation: reviewed/agree
[2025-06-23 09:15] VITALS: BP 151/99; PULSE 81; RESP 16; TEMP 36.2; O2SAT 100
== END 2025-06-23 09:48 | disposition home or self-care (01) ==
PROVIDERS: Emergency Provider Nurse Practitioner Family; PCP Family Medicine
DX: S63.501A Unspecified sprain of right wrist, initial encounter (principal); W00.0XXA Fall on same level due to ice and snow, initial encounter; Y99.0 Civilian activity done for income or pay; I10 Essential (primary) hypertension; E03.9 Hypothyroidism, unspecified; F41.9 Anxiety disorder, unspecified; Z79.82 Long term (current) use of aspirin
CPT/HCPCS: 73110; 73130; 99213; G0463